=== PATIENT | female | born 2000 | race Caucasian/White ===

== ENCOUNTER 2018-09-28 15:51 | Emergency (ER) | payer BC ==
[~2018-09-28] VITALS: Ht 160 cm; Wt 52.3 kg
[2018-09-28 16:00] VITALS: BP 130/80
[2018-09-28] MEDS ORDERED: methylPREDNISolone sod succ 125mg/2ml vial IV ONE (16:25)
[2018-09-28] MEDS ORDERED: diphenhydrAMINE 25mg capsule PO ONE (16:25)
[2018-09-28] MEDS ORDERED: EPIN0.3P3 SUBCUT (17:47)
== END 2018-09-28 18:20 | disposition home or self-care (01) ==
LOC: ER 15:52
DX: T78.1XXA Other adverse food reactions, not elsewhere classified, initial encounter (principal); R22.2 Localized swelling, mass and lump, trunk; R06.02 Shortness of breath; R07.89 Other chest pain; R42 Dizziness and giddiness; Z91.011 Allergy to milk products; Z91.018 Allergy to other foods; Z91.012 Allergy to eggs; X58.XXXA Exposure to other specified factors, initial encounter
CPT/HCPCS: 96374; 99283; J2930; Q0163